=== PATIENT | female | born 1990 | race African-American/Black ===

== ENCOUNTER 2017-03-24 20:11 | Emergency (ER) | payer SELFPAY ==
[2014-08-27 17:27] VITALS: BMI 41.0
[~2017-03-24 20:11] MED LIST: FLAGYL250 MG PO; PRENATAL COMPLE1 TAB PO; TERAZOL 7 VAGIN45 GM VG
[2017-03-24 21:15] LABS: BASOPHILS 0.6 % (0-2); EOSINOPHILS 3.1 % (0-7); HEMATOCRIT 38.7 % (36.0-48.0); HEMOGLOBIN 12.9 g/dL (12-16); IMMATURE GRANULOCYTES 0.1 % (0-5); LYMPHOCYTES 42.8 % (15-50); MCH 26.7 pg (26.0-34.0); MCHC 33.3 g/dL (31.0-37.0); MEAN PLATELET VOLUME 9.6 fL (7.4-10.4); MONOCYTES 8.9 % (2-11); NEUTROPHILS 44.5 % (40-80); PLATELET COUNT 238 10x3/uL (130-400); RBC 4.84 10x6/uL (4.00-5.40); RDW 14.7 % (11.5-14.5); WBC 7.8 10x3/uL (4.8-10.8)
[2017-03-24 21:24] LABS: HCG SERUM POSITIVE (NEGATIVE)
[2017-03-24 21:33] LABS: INR 1.07 (0.85-1.17); PROTIME 13.5 SECONDS (11.6-15.0)
[2017-03-24 21:34] LABS: APTT 33.2 SECONDS (22.8-39.4)
[2017-03-24 21:38] LABS: ALBUMIN 3.7 g/dL (3.4-5.0); ALKALINE PHOSPHATASE 156 U/L (46-116); ALT (SGPT) 92 U/L (10-68); BILIRUBIN - TOTAL 0.35 mg/dL (0.2-1.3); CALC OSMOLALITY 274 mosm/kg (275-300); CALCIUM 8.9 mg/dL (8.5-10.1); CHLORIDE - SERUM 104 mmol/L (98-107); CREATININE - SERUM 0.8 mg/dL (0.6-1.3); GLUCOSE 106 mg/dL (74-106); POTASSIUM - SERUM 3.7 mmol/L (3.5-5.1); PROTEIN - SERUM 7.5 g/dL (6.4-8.2); SODIUM 138 mmol/L (136-145); UREA NITROGEN 10 mg/dL (7-18); eGFR NON AFRICAN AMERICAN > 90 mL/min (90-120)
[2017-03-25 01:08] LABS: BASOPHILS 0.6 % (0-2); EOSINOPHILS 2.2 % (0-7); HEMATOCRIT 36.5 % (36.0-48.0); HEMOGLOBIN 12.2 g/dL (12-16); IMMATURE GRANULOCYTES 0.3 % (0-5); LYMPHOCYTES 38.4 % (15-50); MCH 26.6 pg (26.0-34.0); MCHC 33.4 g/dL (31.0-37.0); MCV 79.7 fL (80.0-100.0); MEAN PLATELET VOLUME 9.4 fL (7.4-10.4); MONOCYTES 8.1 % (2-11); NEUTROPHILS 50.4 % (40-80); PLATELET COUNT 240 10x3/uL (130-400); RBC 4.58 10x6/uL (4.00-5.40); RDW 14.6 % (11.5-14.5); WBC 10.1 10x3/uL (4.8-10.8)
== END 2017-03-25 02:05 | disposition home or self-care (01) ==
LOC: D.ER 20:11
PROVIDERS: Emergency Medicine
DX: N93.9 Abnormal uterine and vaginal bleeding, unspecified (principal); O03.9 Complete or unspecified spontaneous abortion without complication

== ENCOUNTER 2018-08-14 05:02 | Emergency (ER) | payer BC ==
[~2018-08-14] VITALS: Ht 175.3 cm; Wt 127.3 kg
[2018-08-14 05:05] VITALS: Ht 175.3 cm; Wt 127.3 kg
[2018-08-14] MEDS ORDERED: ATARAX 25 MG TA25 MG (05:08)
[2018-08-14] MEDS ORDERED: NORVASC10 MG PO (05:08)
[2018-08-14] MEDS ORDERED: CELEXA10 MG (05:09)
[2018-08-14] MEDS ORDERED: PHENERGAN DM SYR5 ML (05:10)
[2018-08-14] MEDS ORDERED: ALBUTEROL SULF8.5 GM INH (05:32)
[2018-08-14] MEDS ORDERED: LEVOFLOXACIN500 MG PO (05:32)
[2018-08-14 06:02] VITALS: BP 154/82
== END 2018-08-14 06:03 | disposition home or self-care (01) ==
LOC: D.ER 05:02
DX: J40 Bronchitis, not specified as acute or chronic (principal)